=== PATIENT | male | born 1985 | race Two or more races ===

== ENCOUNTER 2017-02-11 11:17 | Emergency (ER) | payer OTHER ==
[~2017-02-11] VITALS: Ht 175.3 cm; Wt 68.0 kg
[2017-02-11 12:00] VITALS: BP 116/62
[2017-02-11] MEDS ORDERED: TETANUS-DIPTH-ACEL PERTUSSIS 0.5ML SYRG IM ONE (12:15)
[2017-02-11] MEDS ORDERED: IBUPROFEN 600 MG TAB PO ONE (12:15)
[2017-02-11] MEDS ORDERED: cefTRIAXone SOD 1,000 MG VL IM ONE (12:15)
== END 2017-02-11 12:58 | disposition home or self-care (01) ==
LOC: ER 11:17
DX: S62.522B Displaced fracture of distal phalanx of left thumb, initial encounter for open fracture (principal); W23.0XXA Caught, crushed, jammed, or pinched between moving objects, initial encounter; Y93.89 Activity, other specified; Y92.89 Other specified places as the place of occurrence of the external cause; Y99.0 Civilian activity done for income or pay
CPT/HCPCS: 29125; 73130; 90471; 90715; 96372; 99284; J0696